=== PATIENT | male | born 1980 | race Caucasian/White ===

== ENCOUNTER 2020-08-26 14:27 | Outpatient (REF) | payer OTHER, SELFPAY | END 2020-08-26 14:28 | disposition home or self-care (01) | LOC: HO.LAB 14:27 | PROVIDERS: Visit Provider Internal Medicine | DX: Z20.828 Contact with and (suspected) exposure to other viral communicable diseases (principal) | CPT/HCPCS: C9803; U0003 ==

== ENCOUNTER 2022-09-19 16:40 | Emergency (ER) | payer OTHER, MEDICAID, SELFPAY ==
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
[2022-09-19 16:45] VITALS: BP 114/79; PULSE 96; RESP 18; TEMP 36.7; O2SAT 96; BMI 33.4
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
== END 2022-09-19 17:36 | disposition home or self-care (01) ==
LOC: HO.ED 17:29
PROVIDERS: Emergency Provider Emergency Medicine
DX: Z04.2 Encounter for examination and observation following work accident (principal); M79.661 Pain in right lower leg
CPT/HCPCS: 73590; 99282; 99283

== ENCOUNTER 2022-12-29 12:49 | Emergency (ER) | payer OTHER, MEDICAID, SELFPAY ==
--- NOTE | ~2022-12-29 | US_ITS ---
EXAMINATION: US extremity nonvascular murillo CLINICAL INFORMATION: Question biceps or triceps tendon rupture. COMPARISON: None. TECHNIQUE: Sonographic evaluation in the region of concern of the right forearm. FINDINGS: Targeted evaluation shows no clear evidence of tendon rupture. There is no muscle retraction identified. Limited evaluation of the tendinous attachment. No fluid collection or focal abnormality identified. US/US extremity nonvascular murillo IMPRESSION: No evidence of tendon rupture or collection. Of note, this examination is limited and incomplete visualization is not performed of all structures. If there is continued concern, MRI is recommended to evaluate.
--- NOTE | ~2022-12-29 | XR_ITS ---
EXAMINATION: XR ELBOW, RIGHT CLINICAL INFORMATION: Injury. Pain. COMPARISON: None available. TECHNIQUE: AP, lateral, and oblique views of the right elbow. FINDINGS: No fracture or dislocation. Alignment is anatomic. Joint spaces are maintained. No elbow joint effusion. The soft tissues are unremarkable. XR/XR elbow RT 2V IMPRESSION: Normal right elbow.
--- NOTE | 2022-12-29 12:57 | ED_ITS ---
HPI - Extremity Injury (Upper) General Chief Complaint: Extremity Injury, Upper <JULIET Garcia - Last Filed: 12/29/22 14:35> Stated Complaint: work inj <JULIET Garcia - Last Filed: 12/29/22 14:35> Time Seen by Provider: 12/29/22 13:05 <JULIET Garcia - Last Filed: 12/29/22 14:35> Source: patient <Claudette Santamaria NP - Last Filed: 12/29/22 15:45> Mode of arrival: ambulatory <Claudette Santamaria NP - Last Filed: 12/29/22 15:45> Limitations: no limitations <Claudette Santamaria NP - Last Filed: 12/29/22 15:45> History of Present Illness HPI narrative: 42-year-old male previously healthy here with right inner elbow pain which occurred after lifting a heavy object while working. Patient reports he was picking up a heavy object off the ground with both of his arms and a 90 degree position. When he went to lift up he felt a pulling sensation in his in her right elbow and felt that the extremity was weak. This caused him to drop the object. Patient is right handed. He now reports pain over the right and her elbow but denies any numbness or tingling of the extremity. No previous injury. <Claudette Santamaria NP - Last Filed: 12/29/22 15:45> Related Data Allergies/Adverse Reactions: Allergies Allergy/AdvReac Type Severity Reaction Status Date / Time No Known Allergies Allergy Unverified 05/28/20 15:30 <JULIET Garcia - Last Filed: 12/29/22 14:35> Review of Systems Review of Systems: Yes all other systems are reviewed and are negative <Claudette Santamaria NP - Last Filed: 12/29/22 15:45> Constitutional: Constitutional: Reports no additional constitutional complaints, Denies body ache(s), Denies chills, Denies fever(s), Denies headache(s) and Denies weakness <Claudette Santamaria NP - Last Filed: 12/29/22 15:45> Eyes: Eyes: Reports no additional eye complaints and Denies change in vision <Claudette Santamaria [employer] - Last Filed: 12/29/22 15:45> ENT: Reports system reviewed and no additional complaints, except as documented, Denies dizziness, Denies headache(s), Denies nasal congestion, Denies nasal discharge and Denies neck pain <Claudette Santamaria [employer] - Last Filed: 12/29/22 15:45> Cardiovascular: Cardiovascular: Reports no additional cardiovascular complaints, Denies chest pain, Denies leg edema and Denies dyspnea <Claudette Santamaria, [employer] - Last Filed: 12/29/22 15:45> Respiratory: Respiratory: Reports no additional respiratory complaints, Denies cough and Denies dyspnea <Claudette Santamaria [employer] - Last Filed: 12/29/22 15:45> Gastrointestinal: Gastrointestinal: Reports no additional gastrointestinal complaints, Denies abdominal pain, Denies diarrhea, Denies nausea and Denies vomiting <Claudette Santamaria [employer] - Last Filed: 12/29/22 15:45> Genitourinary: Genitourinary: Denies urinary incontinence <Claudette Santamaria, [employer] - Last Filed: 12/29/22 15:45> Musculoskeletal: Musculoskeletal: Reports no additional musculoskeletal complaints, Denies back pain, Reports arthralgias, Denies joint swelling, Denies limited range of motion, Denies neck pain, Denies numbness and Denies tingling <Claudette Santamaria [employer] - Last Filed: 12/29/22 15:45> Integumentary/Breasts: Skin/Breast: Reports system reviewed and no additional complaints, except as docu and Denies rash <Claudette Santamaria [employer] - Last Filed: 12/29/22 15:45> Neurologic: Reports system reviewed and no additional complaints, except as documented, Denies Abnormal speech present, Denies dizziness, Denies headache(s), Denies numbness, Denies tingling and Denies weakness <Claudette Santamaria [employer] - Last Filed: 12/29/22 15:45> PMFSH Past Medical History Attestation statement: The following information was validated with the patient. <Claudette Santamaria [employer] - Last Filed: 12/29/22 15:45> Source: old records reviewed and nursing notes reviewed <Claudette Santamaria NP - Last Filed: 12/29/22 15:45> Social History Social History: Social History Advance Directives: No <JULIET Garcia - Last Filed: 12/29/22 14:35> Physical Exam Vital Signs: Vital Signs: Last Vital Signs Temp 98 F 12/29/22 12:58 Pulse 82 12/29/22 12:58 Resp 19 12/29/22 12:58 BP 138/80 12/29/22 12:58 Pulse Ox 98 12/29/22 12:58 O2 Del Method Room Air 12/29/22 12:58 BMI result Body Mass Index 32.5 <JULIET Garcia - Last Filed: 12/29/22 14:35> Vital Signs: Last Vital Signs Temp 98 F 12/29/22 12:58 Pulse 82 12/29/22 12:58 Resp 12/29/22 12:58 BP 138/80 12/29/22 12:58 Pulse Ox 98 12/29/22 12:58 O2 Del Method Room Air 12/29/22 12:58 BMI result Body Mass Index 32.5 <Claudette Santamaria NP - Last Filed: 12/29/22 15:45> Const: General: cooperative, healthy appearing, comfortable and no acute distress <Claudette Santamaria NP - Last Filed: 12/29/22 15:45> Orientation/consciousness: patient oriented x3 <Claudette Santamaria NP - Last Filed: 12/29/22 15:45> Limitations: no limitations <Claudette Santamaria NP - Last Filed: 12/29/22 15:45> HEENT: Head: Yes normal to inspection <Claudette Santamaria NP - Last Filed: 12/29/22 15:45> Ears: hearing grossly normal bilaterally <Claudette Santamaria NP - Last Filed: 12/29/22 15:45> General nose exam: Normal external nose present <Claudette Santamaria NP - Last Filed: 12/29/22 15:45> Face and sinus: Yes normal facial exam <Claudette Santamaria [employer] - Last Filed: 12/29/22 15:45> Mouth: Normal oral and palatal mucosa present <Claudette Santamaria [employer] - Last Filed: 12/29/22 15:45> Throat: Yes posterior oropharynx normal <Claudette Santamaria [employer] - Last Filed: 12/29/22 15:45> Eyes: General: appearance normal, both eyes and all related structures <Claudette Santamaria, [employer] - Last Filed: 12/29/22 15:45> Pupils: Equal, round and reactive pupils present <Claudette Santamaria, [employer] - Last Filed: 12/29/22 15:45> Neck: Neck: Yes normal visual inspection <Claudette Santamaria, [employer] - Last Filed: 12/29/22 15:45> Chest: Chest palpation & inspection: normal inspection of the chest <Claudette Santamaria [employer] - Last Filed: 12/29/22 15:45> Resp: Effort & Inspection: normal respiratory effort <Claudette Santamaria [employer] - Last Filed: 12/29/22 15:45> Auscultation: clear to auscultation bilaterally <Claudette Santamaria [employer] - Last Filed: 12/29/22 15:45> Cardio: Rate: regular rate <Claudette Santamaria [employer] - Last Filed: 12/29/22 15:45> Rhythm: regular rhythm <Claudette Santamaria [employer] - Last Filed: 12/29/22 15:45> Peripheral pulses: Peripheral pulses 2+ throughout <Claudette Santamaria [employer] - Last Filed: 12/29/22 15:45> GI: Inspection: Yes normal to inspection <Claudette Santamaria [employer] - Last Filed: 12/29/22 15:45> Palpation (GI): Soft to palpation and nontender <Claudette Santamaria [employer] - Last Filed: 12/29/22 15:45> Auscultation: normal bowel sounds <Claudette Santamaria [employer] - Last Filed: 12/29/22 15:45> Back/Spine/Pelvis: Thoracic/Lumbar Spine: thoracic and lumbar spine normal to inspection <Claudette Santamaria [employer] - Last Filed: 12/29/22 15:45> Skin: General skin exam: no rashes or lesions noted <Claudette Santamaria [employer] - Last Filed: 12/29/22 15:45> Neuro: General: patient oriented x3, no focal motor deficits and normal sensation to monofilament <Claudette Santamaria [employer] - Last Filed: 12/29/22 15:45> Cranial nerves: Yes Equal, round and reactive pupils present <Claudette Santamaria, [employer] - Last Filed: 12/29/22 15:45> Cognition (Neuro): normal cognition <Claudette Santamaria [employer] - Last Filed: 12/29/22 15:45> Speech: No Abnormal speech present <Claudette Santamaria, [employer] - Last Filed: 15:45> Gait exam (Neuro): Normal gait present <Claudette Santamaria [employer] - Last Filed: 12/29/22 15:45> Motor exam (neuro): 5/5 motor strength present throughout <Claudette Santamaria, [employer] - Last Filed: 12/29/22 15:45> Extrem: Other: There is tenderness on palpation over the right inner and medial elbow. There is no obvious swelling or deformity. Patient is able to extend and flex the elbow with no difficulty. He does have some pain with pronation of the right forearm but no difficulty pronating or supinating the forearm. He has no tenderness over the shoulder. He has no tenderness over the wrist or hand on the right side. He has full range of motion of the shoulder, wrist and hand on the right side. He has palpable radial and ulnar pulses distally. Sensation is intact distally. <Claudette Santamaria [employer] - Last Filed: 12/29/22 15:45> General: Yes normal to inspection <Claudette Santamaria [employer] - Last Filed: 12/29/22 15:45> Course Course Course Narrative: RME-- 42yo M w/no sig PMHx c/o R antecubital pain s/p heavy lifting at work yesterday. Reports pain worse with supination. States the arm feels weak and like something is tearing NV intact distally. Mild tenderness to right antecubital area. No swelling/def ormity or erythema Nonvascular ultrasound ordered to rule out tendon rupture/partial tear <JULIET Garcia - Last Filed: 12/29/22 14:35> Reevaluation(s) Reevaluation #1: Ultrasound and x-ray are negative. I doubt tendon injury as patient has full active and passive range of motion with no difficulty. Likely strain. I will refer patient to follow-up with were connection as this was work related. Reviewed rice at home. Reviewed worrisome signs and symptoms of when to return to the emergency room. Comfortable plan for discharge home. <Claudette Santamaria NP - Last Filed: 12/29/22 15:45> Medical Decision Making Medical Decision Making MDM Narrative: 42 yo male right hand dominant here with right elbow pain after lifting a heavy object while working. Patient has tenderness over the medial/inner aspect of the right elbow with full active/passive ROM. Will obtain x-ray US ordered from triage <Claudette Santamaria NP - Last Filed: 12/29/22 15:45> Differential Diagnosis Differential Diagnoses: The differential diagnosis associated with the presentation includes <Claudette Santamaria NP - Last Filed: 12/29/22 15:45> strain doubt fracture tendon injury-although doubt as patient has full active/passive ROM <Claudette Santamaria NP - Last Filed: 12/29/22 15:45> Independent Interpretation I performed an independent interpretation of an: Plain X-Ray and Ultrasound <Claudette Santamaria NP - Last Filed: 12/29/22 15:45> Interpretation: I independently reviewed the x-ray and the ultrasound agree with radiologist's report <Claudette Santamaria NP - Last Filed: 12/29/22 15:45> Radiology Impression Discussion of test interpretation with radiology: I have reviewed the radiologist's reading. <Claudette Santamaria NP - Last Filed: 12/29/22 15:45> Radiologist Impression: [address] [address] XRay Report Signed Patient: Prasad Cullen MR#: [id number] : 1980 Acct:[id number] Age/Sex: 42 / M ADM Date: 12/29/22 Loc: [facility].ED Attending Dr: Ordering Physician: Claudette Hensley NP Date of Service: 12/29/22 Procedure(s): XR elbow RT 2V Accession Number(s): [id number] cc: Claudette Hensley NP~ EXAMINATION: XR ELBOW, RIGHT CLINICAL INFORMATION: Injury. Pain.? COMPARISON: None available.? TECHNIQUE: AP, lateral, and oblique views of the right elbow. FINDINGS: No fracture or dislocation. Alignment is anatomic. Joint spaces are maintained. No elbow joint effusion. The soft tissues are unremarkable. ? XR/XR elbow RT 2V IMPRESSION: Normal right elbow. [place] [address] Ultrasound Report Signed Patient: Prasad Cullen MR#: [id number] : 1980 Acct:[id number] Age/Sex: 42 / M ADM Date: 12/29/22 Loc: HO.ED Attending Dr: Ordering Physician: Milly Bryant Date of Service: 12/29/22 Procedure(s): US extremity nonvascular murillo Accession Number(s): [id number] cc: Milly Bryant~ EXAMINATION: US extremity nonvascular murillo CLINICAL INFORMATION: Question biceps or triceps tendon rupture. COMPARISON: None. TECHNIQUE: Sonographic evaluation in the region of concern of the right forearm. FINDINGS: Targeted evaluation shows no clear evidence of tendon rupture. There is no muscle retraction identified. Limited evaluation of the tendinous attachment. No fluid collection or focal abnormality identified. US/US extremity nonvascular murillo IMPRESSION: No evidence of tendon rupture or collection. Of note, this examination is limited and incomplete visualization is not performed of all structures. If there is continued concern, MRI is recommended to evaluate. ? <Claudette Santamaria NP - Last Filed: 12/29/22 15:45> Discharge Plan Discharge Clinical Impression: Elbow strain <JULIET Garcia - Last Filed: 12/29/22 14:35> Patient Disposition: Home, Self-Care <JULIET Garcia - Last Filed: 12/29/22 14:35> Instructions: Muscle Strain (ED) <JULIET Garcia - Last Filed: 12/29/22 14:35> Additional Instructions: Your x-ray shows no signs of broken bones Your ultrasound is normal You likely have a muscle strain Take Motrin or Tylenol for pain as needed Apply ice Follow-up with work connection [phone] <JULIET Garcia - Last Filed: 12/29/22 14:35> Stand Alone Forms: Work/School Release <JULIET Garcia - Last Filed: 12/29/22 14:35>
[2022-12-29 12:58] VITALS: BP 138/80; PULSE 82; RESP 19; TEMP 36.6; O2SAT 98; BMI 32.5
--- NOTE | 2022-12-29 15:47 | PC.NURSE ---
Resumed care of this patient at 1500, Provider at bedside reporting results. Pt to be discharged and follow up with work connections. Pt in agreement, and able to ambulate out of hospital independently.
== END 2022-12-29 15:48 | disposition home or self-care (01) ==
PROVIDERS: Emergency Provider Emergency Medicine
DX: S46.811A Strain of other muscles, fascia and tendons at shoulder and upper arm level, right arm, initial encounter (principal); X50.0XXA Overexertion from strenuous movement or load, initial encounter; M79.601 Pain in right arm; Y93.89 Activity, other specified; Y92.59 Other trade areas as the place of occurrence of the external cause; Y99.0 Civilian activity done for income or pay
CPT/HCPCS: 73070; 76882; 99282; 99283; 99284

== ENCOUNTER 2023-08-01 08:08 | Emergency (ER) | payer MEDICAID, SELFPAY ==
--- NOTE | ~2023-08-01 | XR_ITS ---
EXAMINATION: Thoracic and lumbar spine. CLINICAL INDICATIONS: Midline lumbar tenderness. COMPARISON: None. TECHNIQUE: Lumbar spine 3 views. Dorsal spine 3 views. FINDINGS: Lumbar spine: There is segmentation anomaly with 6 lumbar nonrib-bearing vertebrae. There is normal lumbar lordosis. The vertebral heights, alignment and disc heights are normal. There is small enthesophyte along the right lateral L3 vertebra. No acute fracture, lytic or sclerotic process seen. The paravertebral soft tissues are normal. Dorsal spine: There is maintained thoracic kyphosis. The vertebral heights, alignment and disc heights are normal. No visible acute fracture, dislocation or subluxation seen. No aggressive lytic or sclerotic process seen. The soft tissues are normal. XR/XR thoracic spine 3V IMPRESSION: Unremarkable dorsal spine exam. Abnormal segmentation with 6 lumbar vertebrae noted. No acute fracture or lytic process seen.
--- NOTE | ~2023-08-01 | XR_ITS ---
EXAMINATION: Thoracic and lumbar spine. CLINICAL INDICATIONS: Midline lumbar tenderness. COMPARISON: None. TECHNIQUE: Lumbar spine 3 views. Dorsal spine 3 views. FINDINGS: Lumbar spine: There is segmentation anomaly with 6 lumbar nonrib-bearing vertebrae. There is normal lumbar lordosis. The vertebral heights, alignment and disc heights are normal. There is small enthesophyte along the right lateral L3 vertebra. No acute fracture, lytic or sclerotic process seen. The paravertebral soft tissues are normal. Dorsal spine: There is maintained thoracic kyphosis. The vertebral heights, alignment and disc heights are normal. No visible acute fracture, dislocation or subluxation seen. No aggressive lytic or sclerotic process seen. The soft tissues are normal. XR/XR lumbar spine 2-3V IMPRESSION: Unremarkable dorsal spine exam. Abnormal segmentation with 6 lumbar vertebrae noted. No acute fracture or lytic process seen.
[2023-08-01 08:22] VITALS: BP 146/86; PULSE 72; RESP 20; TEMP 37.4; O2SAT 98; BMI 33.4
[2023-08-01 09:25] VITALS: BP 141/94; PULSE 66; RESP 18; TEMP 36.8; O2SAT 98
--- NOTE | 2023-08-01 09:28 | PC.NURSE ---
aox3, vss and up to date. pt c/o 06/20 left flank pain. 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 pt denies any urinary sx/fever/chills. pt denies trauma to site. states that pain worsens upon movement/deep inspiration. pt states that the pain decreases when he lies directly on affected side. pt displays w/ no sob/wob at this time. repositioned to comfort. respirations even and unlabored. call foreman placed within reach.
--- NOTE | 2023-08-01 09:58 | ED_ITS ---
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 States pain has been constant since onset. Localized to left flank and mid back. No radiation of pain. Has been taking Tylenol at home without improvement, last dose yesterday. Rates pain at 10/10. Pain is exacerbated with movement. Does not have a left kidney. Has never had pain like this before. Denies fever, chills, headache, dizziness, nausea/vomiting, abdominal pain, groin pain, constipation, diarrhea, dysuria, hematuria, bowel or bladder incontinence or retention, saddle anesthesia. Denies trauma or injury to the area. Denies sick contacts. Denies EtOH consumption or illicit/IVDU. Denies recent travel. Related Data Previous Rx's Medication Instructions Recorded cyclobenzaprine 10 mg tablet 10 mg PO BEDTIME #14 tabs 08/01/23 lidocaine 5 % topical patch 1 patch topical DAILY #15 ea 08/01/23 (Lidoderm) Allergies Allergy/AdvReac Type Severity Reaction Status Date / Time No Known Allergies Allergy Verified 08/01/23 08:25 Review of Systems 2 Review of Systems: Constitutional: No fever, chills, fatigue, night sweats, weight changes ENT/Mouth: No ear pain, hearing loss, nasal congestion, sinus pain, rhinorrhea, sore throat Eyes: No eye pain, swelling, redness, vision changes, discharge Cardio: No chest pain, palpitations, SANDRA, orthopnea, peripheral edema Pulm: No SOB, cough, sputum, wheezing, dyspnea, hemoptysis GI: No nausea, vomiting, hematemesis, abdominal pain, diarrhea, constipation, hematochezia, melena : No irregular bleeding, dysuria, frequency, urgency, hesitancy, hematuria, + left flank pain, No urinary flow changes, urinary incontinence or retention MSK: +back pain, No neck pain, joint pain, myalgias Skin: No lesions, rashes Neuro: No weakness, numbness, paresthesias, LOC, dizziness, headache All other systems reviewed and are negative. PMFSH Past Medical History Attestation statement: The following information was validated with the patient. Source: old records reviewed and nursing notes reviewed Social History Smoked in Last 30 Days: No Use of substances other than those prescribed or required for medical reasons: No Advance Directives: No Advance Directives Information Provided: Yes Physical Exam ED Vital Signs: Vital Signs - 24 hr 08/01/23 08:22 08/01/23 09:25 08/01/23 11:36 Temperature 99.3 F 98.3 F Pulse Rate 72 66 88 Respiratory Rate 20 18 18 Blood Pressure 146/86 H 141/94 H 119/88 Pulse Oximetry 98 98 97 Oxygen Delivery Method Room Air Room Air Room Air BMI result Body Mass Index 33.4 Vital signs stable Const Other: + uncomfortable appearing, lying on his right side. Pain exacerbated with turning onto his back. General: cooperative, no acute distress, alert and awake Nutritional Appearance: overweight Orientation/consciousness: patient oriented x3 Limitations: no limitations HENMS Head: Yes normal to inspection Ears: hearing grossly normal bilaterally General nose exam: Normal external nose present Eyes General: appearance normal, both eyes and all related structures Conjunctivae: conjunctivae normal Sclerae: sclerae normal Pupils: Equal, round and reactive pupils present Neck Neck: Yes normal visual inspection and Yes no lymphadenopathy Resp Effort & Inspection: normal respiratory effort and able to speak in complete sentences Auscultation: clear to auscultation bilaterally Cardio Rate: regular rate Rhythm: regular rhythm Peripheral pulses: ulnar radial pulses present, posterior tibial pulses present and dorsalis pedis present GI Other: + abdomen soft, nondistended, nontender to palpation, no rebound tenderness or guarding, normoactive bowel sounds x4. No splenomegaly or hepatomegaly. Inspection: Yes normal to inspection General: Yes no CVA tenderness Back/Spine/Pelvis Other: + no cervical midline spinous tenderness. There is midline thoracic and lumbar spinous tenderness. There is left-sided para spinous tenderness. No step-off deformity. Back: no CVA tenderness Skin General skin exam: no rashes or lesions noted Neuro Other: Strength 5/5 intact throughout.?No saddle anesthesia.?Sensation intact to light touch. Neurovascular intact distally.? General: patient oriented x3, gait normal and moves all extremities Cranial nerves: Yes CN's II-XII intact bilaterally and Yes Equal, round and reactive pupils present Extrem General: Yes normal to inspection and Yes no clubbing, cyanosis or edema Course Course Course Narrative: 1136-- CBC without leukocytosis or anemia. Chemistry without acute electrolyte abnormality requiring intervention. Kidney function WNL. Urine without infection or blood > no UTI, nephrolithiasis unlikely. 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 > Likely muscle sprain/strain as pain is exacerbated wtih movement. 1208-- On re-evaluation patient reports pain improvement with Lidoderm patch and Tylenol, however states his pain is still there. Informed patient of lab and imaging results. Will order Flexeril and re-evaluate. 1300-- On re-evaluation, patient reports pain has resolved and he would like to leave. I will send Flexeril and Lidoderm patches to patient's pharmacy. Advised him to take Tylenol and ibuprofen as needed for pain/discomfort. He tells me that he does not have a PCP to follow up with. Referral has been provided to him. Discussed strict return precautions. All questions answered at this time. Patient is agreeable with disposition and stable for discharge. Medications Administered Discontinued Medications Generic Name Dose Route Start Last Admin Trade Name Barbara PRN Reason Stop Dose Admin Acetaminophen 975 mg 08/01/23 10:19 08/01/23 10:43 Acetaminophen 325 Mg Tablet PO 08/01/23 10:20 975 mg ONCE ONE Administration Cyclobenzaprine HCl 10 mg 08/01/23 12:08 08/01/23 12:18 Cyclobenzaprine Hcl 10 Mg Tablet PO 08/01/23 12:09 10 mg ONCE ONE Administration Lidocaine 1 patch 08/01/23 10:19 08/01/23 10:43 Lidocaine 4 % Patch Adh..Patch TRANSDERMA 08/01/23 10:20 1 patch ONCE ONE Administration Protocol Medical Decision Making Medical Decision Making MDM Narrative: 43 year old male with pmhx significant for 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 Vital signs stable. Afebrile. Patient is uncomfortable appearing, lying on his right side, pain exacerbated with movement. Abdomen is soft, NT/ND, no rebound tenderness or guarding. No hepatosplenomegaly. Normoactive bowel sounds x4. There is midline thoracic and lumbar spinous tenderness. There is tenderness to palpation of the left paraspinal muscles. There is no step-off deformity. No CVAT. Clinical concern for MSK sprain/strain, fracture, subluxation, contusion. Concern for UTI. Unlikely nephrolithiasis, pyelonephritis. Unlikely cauda equina, cord compression, epidural abscess. Plan at this time is basic labs, UA, x-ray thoracic and lumbar spine, pain control and re-evaluation. Differential Diagnosis Differential Diagnoses: The differential diagnosis associated with the presentation includes As above. Admission/Observation Not indicated. Lab Data MDM Lab Attestation statement: I reviewed the patient's lab results. As above. 08/01/23 10:48 08/01/23 10:48 Labs: Lab Results 08/01/23 Range/Units 10:48 WBC 8.8 (4.8-10.8) X10*3/uL RBC 5.35 (4.60-5.80) X10*6/uL Hgb 16.0 (14.0-18.0) g/dl Hct 46.4 (42.0-52.0) % MCV 86.7 (80.0-98.0) fL MCH 29.9 (27.0-33.0) pg MCHC 34.5 (31.0-36.0) g/dl RDW 13.2 (11.0-16.0) % Plt Count 342 (160-400) X10*3/uL MPV 9.5 (9.4-12.4) fL Immature Gran % (Auto) 0.3 (0.0-0.4) % Neut % (Auto) 62.5 (45-73) % Lymph % (Auto) 25.7 (20-40) % [place] % (Auto) 9.6 (2-11) % Eos % (Auto) 1.4 (0-4) % Baso % (Auto) 0.5 (0-2) % Lymph # (Auto) 2.3 (1.2-4.9) X10*3/uL [place] # (Auto) 0.8 (0.1-1.2) X10*3/uL Eos # (Auto) 0.1 (0.0-0.4) X10*3/uL Baso # (Auto) 0.0 (0.0-0.2) X10*3/uL Abs Immat Gran (auto) 0.03 (0.00-0.03) X10*3/uL Absolute Neuts (auto) 5.5 (2.0-8.3) x10*3/uL Absolute Nucleated RBC 0.000 (0.0-0.012) X10*3/uL Nucleated RBC % (auto) 0.0 (0.0-0.2) /100WBC Sodium 137 (135-145) mmol/L Potassium 4.1 (3.3-5.1) mmol/L Chloride 107 (96-108) mmol/L Carbon Dioxide 26 (22-29) mmol/L Anion Gap 8 L (12-20) BUN 13 (9-16) mg/dL Creatinine 1.23 (0.5-1.4) mg/dL Estim Creat Clear Calc 87.7 Estimated GFR > 60 Random Glucose 98 (60-115) mg/dL Calcium 9.4 (8.4-10.2) mg/dL Magnesium 2.1 (1.6-2.6) mg/dL Total Bilirubin 0.5 (0.0-1.0) mg/dL AST 20 (5-37) U/L ALT 23 (0-40) U/L Alkaline Phosphatase 93 (39-117) U/L Total Protein 7.6 (6.5-8.0) g/dL Albumin 4.2 (3.5-5.0) g/dL Lipase 39 (8-78) U/L Urine Color Yellow Urine Appearance Clear Urine pH 6.5 (5.0-9.0) Ur Specific [place] 1.020 (1.005-1.025) Urine Protein Negative (Neg-Trace) mg/dL Urine Glucose (UA) Negative (Negative) mg/dL Urine Ketones Negative (Negative) mg/dL Urine Blood Negative (Negative) Urine Nitrite Negative (Negative) Ur Leukocyte Esterase Negative (Negative) Independent Interpretation I performed an independent interpretation of an: Plain X-Ray Interpretation: X-ray thoracic and lumbar spine without acute fracture subluxation, agree with radiologist's interpretation. Radiology Impression Discussion of test interpretation with radiology: I have reviewed the radiologist's reading. Radiologist Impression: XR thoracic spine 3V IMPRESSION: Unremarkable dorsal spine exam Abnormal segmentation with 6 lumbar vertebrae noted. No acute fracture or lytic process seen. External Record Review External record reviewed: Inpatient record, Office record, Outpatient record, Prior outpatient labs, Prior outpatient radiology, Primary care record and Outside ED record Prescription Management I considered prescription management with: Pain Medication and Other (Muscle relaxer) Critical Care Time Critical Care Time Critical Care Time: No Discharge Plan Discharge Clinical Impression: Lumbar strain Patient Disposition: Home, Self-Care Instructions: Muscle Strain (ED), Acute Low Back Pain (ED) Additional Instructions: Your labs today returned normal. Your imaging studies today did not show acute fracture. Your back pain resolved with NSAIDs and a muscle relaxer. Your pain is likely musculoskeletal. Avoid bending, lifting, or twisting. Use ice several times per day for 20 minutes at a time for the next 48 hours and then change to heat. Flexeril is a muscle relaxer. Take this at night as it makes you drowsy. Do not drive, drink alcohol, or operate machinery while taking it. Lidoderm patches are numbing patches. Apply to painful areas. In addition you may take Tylenol or Ibuprofen at home. Follow up with your primary care provider as needed. If you do not have one, one has been provided to you. You may call them to make an appointment. They will not call you. If your pain worsens, if you develop new numbness, tingling, weakness, loss of bowel or bladder function call 911 or return to the ER immediately for evaluation. Prescriptions: New lidocaine [Lidoderm] 5 % adhesive patch,medicated 1 patch topical DAILY Qty: 15 0RF Rx Instructions: leave on most painful area for up to 12 hrs cyclobenzaprine 10 mg tablet 10 mg PO BEDTIME Qty: 14 0RF Referrals: [facility] [place] Group] [facility] Group] Stand Alone Forms: Work/School Release Interventions: ED Discharge Assessment Last Done: 08/01/23 13:36 Discharge Date/Time: 08/01/23 13:36
[2023-08-01] MEDS: Lidocaine 4 % Patch ADH..PATCH 1 PATCH TRANSDERMA (10:43)
[2023-08-01] MEDS: Acetaminophen 325 MG TABLET 975 MG PO (10:43)
--- NOTE | 2023-08-01 10:46 | PC.NURSE ---
medication administered per provider order. tech obtaining labs at this time.
[2023-08-01 10:54] LABS: MANUAL DIFF FLAG NO
[2023-08-01 10:56] LABS: Basophils Percent Auto 0.5 % (0-2); Eosinophils Absolute Auto 0.1 X10*3/uL (0.0-0.4); Eosinophils Percent Auto 1.4 % (0-4); Hematocrit 46.4 % (42.0-52.0); Imm Gran Abs Auto 0.03 X10*3/uL (0.00-0.03); Imm Gran Pct Auto 0.3 % (0.0-0.4); Lymphocytes Absolute Auto 2.3 X10*3/uL (1.2-4.9); Lymphocytes Percent Auto 25.7 % (20-40); Mean Corpuscular HGB Conc 34.5 g/dl (31.0-36.0); Mean Corpuscular Hemoglobin 29.9 pg (27.0-33.0); Mean Corpuscular Volume 86.7 fL (80.0-98.0); Mean Platelet Volume 9.5 fL (9.4-12.4); Monocytes Absolute Auto 0.8 X10*3/uL (0.1-1.2); Monocytes Percent Auto 9.6 % (2-11); Neutrophils Absolute Auto 5.5 x10*3/uL (2.0-8.3); Neutrophils Percent Auto 62.5 % (45-73); Platelet Count 342 X10*3/uL (160-400); Red Blood Count 5.35 X10*6/uL (4.60-5.80); Red Cell Distribution Width 13.2 % (11.0-16.0); White Blood Count 8.8 X10*3/uL (4.8-10.8)
[2023-08-01 10:57] LABS: Appearance Urine Clear; Color Urine Yellow; Glucose Urine UA Negative (Negative); Leukocyte Esterase Urine Negative (Negative); Nitrite Urine Negative (Negative); PH 6.5 (5.0-9.0); Urine Blood Negative (Negative); Urine Ketones Negative (Negative); Urine Protein Negative (Neg-Trace)
[2023-08-01 11:09] LABS: Alanine Aminotransferase 23 U/L (0-40); Albumin Level 4.2 g/dL (3.5-5.0); Alkaline Phosphatase 93 U/L (39-117); Anion Gap 8 (12-20); Aspartate Amino Transferase 20 U/L (5-37); Bilirubin Total 0.5 mg/dL (0.0-1.0); Blood Urea Nitrogen 13 mg/dL (9-16); Calcium 9.4 mg/dL (8.4-10.2); Carbon Dioxide 26 mmol/L (22-29); Chloride 107 mmol/L (96-108); Creatinine Clr Calc Pharmacy 87.7; Estimated Glomerular Filt Rate > 60; Glucose Random 98 mg/dL (60-115); Lipase 39 U/L (8-78); Magnesium 2.1 mg/dL (1.6-2.6); Potassium 4.1 mmol/L (3.3-5.1); Sodium 137 mmol/L (135-145); Total Protein 7.6 g/dL (6.5-8.0)
[2023-08-01 11:36] VITALS: BP 119/88; PULSE 88; RESP 18; O2SAT 97
--- NOTE | 2023-08-01 11:37 | PC.NURSE ---
vss and up to date at this time. pt verbalizing pain level decreased slightly post medication administration. pt resting comfortably in no apparent distress at this time. pt awaiting xray results. bedside. respiraitons remain even and unlabored. call foreman placed within reach.
[2023-08-01] MEDS: Cyclobenzaprine HCl 10 MG TABLET PO (12:18)
--- NOTE | 2023-08-01 12:19 | PC.NURSE ---
medication administered per provider order. pt verbalizing that gisela level continues to decrease w/ lidocaine patch. pt in no apparent distress at this time. call foreman placed within reach.
== END 2023-08-01 13:36 | disposition home or self-care (01) ==
PROVIDERS: Physician Assistant Medical; Emergency Provider Emergency Medicine Emergency Medical Services
DX: M54.50 Low back pain, unspecified (principal); M54.6 Pain in thoracic spine; Z79.899 Other long term (current) drug therapy
CPT/HCPCS: 36415; 72072; 72100; 80053; 81003; 83690; 83735; 85025; 99283; 99284

== ENCOUNTER 2025-03-19 02:07 | Emergency (ER) | payer MEDICAID, SELFPAY ==
[2025-03-19 02:16] VITALS: BP 134/72; PULSE 120; RESP 18; O2SAT 97; BMI 30.3
== END 2025-03-19 06:04 | disposition left against medical advice (07) ==
PROVIDERS: Emergency Provider Emergency Medicine
DX: M54.2 Cervicalgia (principal); M79.601 Pain in right arm
CPT/HCPCS: 99281